=== PATIENT | male | born 1935 | race Hispanic/Latino ===

== ENCOUNTER → 2021-02-16 | Day surgery (SDC) | payer MEDICARE ==
[2021-02-15 09:25] LABS: BASOPHILS # (AUTO) 0.1 (0.0-0.1); BASOPHILS % 1.2 % (0.0-1.0); EOSINOPHILS # (AUTO) 0.2 (0.0-0.4); HEMATOCRIT 40.1 % (38.2-49.6); HEMOGLOBIN 13.5 g/dL (14.0-18.0); LYMPHOCYTES # (AUTO) 1.4 (1.0-3.2); LYMPHOCYTES % 24.4 % (18.0-39.1); MEAN CORPUSCULAR HEMOGLOBIN 28.5 pg (28-32); MEAN CORPUSCULAR HGB CONC 33.7 g/dL (31-35); MEAN CORPUSCULAR VOLUME 84.6 fL (81-99); MONOCYTES # (AUTO) 0.8 (0.2-0.8); MONOCYTES % 14.1 % (4.4-11.3); NEUTROPHILS # (AUTO) 3.2 (2.1-6.9); NEUTROPHILS % 56.8 % (38.7-80.0); PLATELET COUNT 219 x10e3/uL (140-360); RED BLOOD COUNT 4.74 x10e6/uL (4.3-5.7); RED CELL DISTRIBUTION WIDTH 13.2 % (11.7-14.4)
[2021-02-15 10:05] LABS: ANION GAP 15.4 mmol/L (8-16); CALCIUM 9.4 mg/dL (8.4-10.2); CREATININE, SERUM 1.26 mg/dL (0.72-1.25); POTASSIUM 3.4 mmol/L (3.5-5.1)
[~2021-02-16] MED LIST: AMLODIPINE BESYL5 MG PO; AUGMENTIN 500-1 EACH PO; BENICAR20 MG PO; BUPIVACAINE 0.25% 30ML SDV ONE; CORTEF10 MG PO; CORTEF20 MG PO; ELIQUIS2.5 MG PO; ELIQUIS5 MG PO; FLECAINIDE ACE100 MG PO; FLOMAX0.4 MG PO; HCTZ PO; HYDROCHLOROTHIA25 MG; HYDROCORTISONE10 MG PO; LEVOTHYROXINE150 MCG PO; OLMESARTAN MEDOX5 MG; OMEPRAZOLE20 M1 PO; TYLENOL # 31 EA PO; [UNRECOGNIZED DRUG - OTHER]; amlodipine PO; hctz PO
[2021-02-16 12:55] VITALS: BP 135/70
== END | disposition home or self-care (01) ==
LOC: OR 07:46
PROVIDERS: ATTEND Surgery
DX: K42.0 Umbilical hernia with obstruction, without gangrene (principal); I44.0 Atrioventricular block, first degree; I10 Essential (primary) hypertension; I48.91 Unspecified atrial fibrillation; E03.9 Hypothyroidism, unspecified; Z01.810 Encounter for preprocedural cardiovascular examination; Z01.812 Encounter for preprocedural laboratory examination; Z01.818 Encounter for other preprocedural examination; Z20.822 Contact with and (suspected) exposure to COVID-19; Z79.02 Long term (current) use of antithrombotics/antiplatelets
CPT/HCPCS: 36415; 49587; 71046; 80048; 85025; 93005; C1781; U0002

== ENCOUNTER → 2024-09-02 | Outpatient (REF) | payer MEDICARE ==
[~2024-09-02] MED LIST changes: -BUPIVACAINE 0.25% 30ML SDV ONE
== END ==
LOC: RAD 12:45
PROVIDERS: ATTEND Internal Medicine
DX: M25.552 Pain in left hip (principal); M25.551 Pain in right hip; M54.50 Low back pain, unspecified
CPT/HCPCS: 72110; 73522